=== PATIENT | male | born 1955 | race Caucasian/White ===

== ENCOUNTER → 2022-07-19 | Day surgery (SDC) | payer MEDICARE, OTHER ==
[~2022-07-19] MED LIST: Lactated Ringers 1,000 ML IV SCH
[2022-07-19 11:23] VITALS: BP 133/79; PULSE 81
== END ==
LOC: CC.SDS 08:26
PROVIDERS: ATTEND Family Medicine
DX: K63.5 Polyp of colon (principal); K62.1 Rectal polyp; K64.4 Residual hemorrhoidal skin tags; K92.1 Melena; Z79.899 Other long term (current) drug therapy; Z85.46 Personal history of malignant neoplasm of prostate
CPT/HCPCS: 00811; J7120

== ENCOUNTER 2022-12-15 08:20 | Emergency (ER) | payer MEDICARE, OTHER ==
[2022-12-15] MEDS: Aspirin 81 MG Tab.Chew PO STA (08:26)
[2022-12-15 09:03] LABS: BASOPHILS ABSOLUTE AUTO 0.06 10^3/uL (0.00-0.50); BASOPHILS PERCENT AUTO 0.5 % (0-1); EOSINOPHILS ABSOLUTE AUTO 0.11 10^3/uL (0.00-1.50); EOSINOPHILS PERCENT AUTO 0.9 % (0-6); HEMATOCRIT 41.8 % (42.0-52.0); HEMOGLOBIN 15.1 g/dL (14.0-18.0); IMMATURE GRAN ABSOLUTE AUTO 0.04 10^3/uL (0.00-0.49); IMMATURE GRAN PERCENT AUTO 0.3 % (0.0-4.9); LYMPHOCYTES ABSOLUTE AUTO 2.16 10^3/uL (0.60-5.00); LYMPHOCYTES PERCENT AUTO 17.7 % (24-44); MEAN CORPUSCULAR HEMOGLOBIN 34.6 pg (27.0-32.0); MEAN CORPUSCULAR HGB CONC 36.1 g/dL (32.0-36.0); MEAN CORPUSCULAR VOLUME 95.7 fL (83.0-97.0); MONOCYTES ABSOLUTE AUTO 1.62 10^3/uL (0.00-1.50); MONOCYTES PERCENT AUTO 13.3 % (0-10); NEUTROPHILS ABSOLUTE AUTO 8.23 x10^3/uL (1.80-8.00); NEUTROPHILS PERCENT AUTO 67.3 % (41-71); PLATELET COUNT,PLT 193 10^3/uL (150-400); RED BLOOD CELL COUNT 4.37 x10^6/uL (4.50-6.00); WHITE BLOOD CELL COUNT,WBC 12.2 10^3/uL (4.0-11.0)
[2022-12-15 09:18] LABS: ALANINE AMINOTRANSFERASE,ALT 24 U/L (12-78); ALBUMIN 3.4 g/dL (3.4-5.0); ALKALINE PHOSPHATASE 83 U/L (46-116); ASPARTATE AMNIOTRANSFERASE,AST 14 U/L (15-37); BILIRUBIN TOTAL 1.1 mg/dL (0.0-1.0); BLOOD UREA NITROGEN,BUN 15 mg/dL (7-18); CALCIUM 8.7 mg/dL (8.4-10.1); CARBON DIOXIDE,CO2 26 mmol/L (21-32); CHLORIDE,CL 99 mEq/L (98-106); CREATINE KINASE,CK 68 U/L (35-232); GLUCOSE RANDOM 111 mg/dL (75-99); LACTATE DEHYDROGENASE,LDH 116 U/L (100-190); LIPASE 25 U/L (16-77); POTASSIUM,K 4.3 mEq/L (3.5-5.0); PROTEIN TOTAL,TP 7.5 g/dL (6.4-8.2); SODIUM,NA 133 mEq/L (136-145)
[2022-12-15 09:19] LABS: ESTIMATED GFR 82 mL/min (>=60)
[2022-12-15 09:54] LABS: D-DIMER QUANTITATIVE 0.46 (0.00-0.50); INR 0.97 (0.92-1.18); PTT,PARTIAL THROMBOPLSTIN TIME 29.2 SEC (20.0-30.0)
[2022-12-15] MEDS: Iopamidol 755 Mg/ML 100 ML Bottle IVPUSH ONE (10:37)
[2022-12-15] MEDS: Take Home: Doxycycline 100 MG Cap, 4 Cap Pack PO ONE (11:53)
[2022-12-15 15:11] VITALS: BP 128/72; PULSE 75
== END 2022-12-15 12:05 | disposition home or self-care (01) ==
LOC: CC.ED 08:20
DX: J18.9 Pneumonia, unspecified organism (principal); Z20.822 Contact with and (suspected) exposure to COVID-19
CPT/HCPCS: 36415; 71046; 71260; 80053; 82550; 83615; 83690; 84484; 85025; 85379; 85610; 85730; 93005; 93010; 99284; 99285; A9270-GY; Q9967; U0002